=== PATIENT | female | born 1980 | race Two or more races ===

== ENCOUNTER 2018-02-10 09:30 | Emergency (ER) | payer OTHER ==
[~2018-02-10] VITALS: Ht 167.6 cm; Wt 70.8 kg
== END 2018-02-10 18:26 | disposition home or self-care (01) ==
LOC: ER 09:30
DX: S93.491A Sprain of other ligament of right ankle, initial encounter (principal); X50.3XXA Overexertion from repetitive movements, initial encounter; Y93.89 Activity, other specified; Y92.89 Other specified places as the place of occurrence of the external cause; Y99.8 Other external cause status

== ENCOUNTER 2018-02-10 12:24 | Outpatient (CLI) | payer OTHER | END 2018-02-10 15:42 | disposition home or self-care (01) | LOC: RAD 501 12:24 | DX: M25.571 Pain in right ankle and joints of right foot (principal) ==

== ENCOUNTER 2022-03-17 08:33 | Outpatient (CLI) | payer OTHER | END 2022-03-17 08:54 | disposition home or self-care (01) | LOC: RAD 08:33 | PROVIDERS: ATTEND Orthopaedic Surgery | DX: M65.4 Radial styloid tenosynovitis [de Quervain] (principal) ==

== ENCOUNTER 2022-05-19 06:20 | Day surgery (SDC) | payer OTHER ==
[~2022-05-19] VITALS: Ht 167.6 cm; Wt 67.6 kg
== END 2022-05-19 14:25 | disposition home or self-care (01) ==
LOC: CIR.AMB 06:20
PROVIDERS: ATTEND Orthopaedic Surgery Hand Surgery
DX: M65.231 Calcific tendinitis, right forearm (principal); Z20.822 Contact with and (suspected) exposure to COVID-19; J45.909 Unspecified asthma, uncomplicated; G43.909 Migraine, unspecified, not intractable, without status migrainosus